=== PATIENT | female | born 1970 | race Caucasian/White ===

== ENCOUNTER 2021-12-16 09:59 | Outpatient (CLI) | payer OTHER, SELFPAY | END 2021-12-16 10:00 | disposition home or self-care (01) | LOC: OP CLINIC 10:01 | PROVIDERS: PCP Family Medicine; Visit Provider Internal Medicine | DX: Z12.11 Encounter for screening for malignant neoplasm of colon (principal) | CPT/HCPCS: 45378; J2250; J2405; J3010 ==

== ENCOUNTER 2022-02-03 07:35 | Outpatient (CLI) | payer OTHER, SELFPAY ==
--- NOTE | 2022-02-03 07:45 | CRLHL7_ITS ---
For Patients: As a result of the Cures Act, medical imaging exams and procedure reports are released immediately into your electronic medical record. You may view this report before your referring provider. If you have questions, please contact your health care provider. BILATERAL SCREENING MAMMOGRAM WITH COMPUTER-AIDED DETECTION TECHNIQUE: CC and MLO views were obtained. These mammographic images have been obtained using full-field digital technique. These mammographic images were interpreted with the benefit of computer-aided detection. COMPARISON FILM: No comparison available. FINDINGS: There are scattered areas of fibroglandular density. IMPRESSION: There is no radiographic evidence for malignancy. ASSESSMENT: BI-RADS Category 1: Negative RECOMMENDATION: Routine screening mammogram in 1 year. A lay language report of this examination will be provided to the patient. OH COOL M.D. Diagnostic Radiologist [email or web address] Transcribed: 3:[address]/Dictated by: Oh Cool MD @ 02/07/2022 1:41:00 PM (Electronically Signed) ----- ADDENDUM ----- COMPARISON: Outside examination 03/24/2020. There is no change to the report. Dictated by Oh Cool MD @ Feb 07 2022 1:41PM ----- ADDENDUM ----- COMPARISON: From 03/24/2020 is now available. There is no change compared to the prior study. No change to the report. Dictated by Oh Cool MD @ Feb 16 2022 10:17AM Signed by:?Oh Cool MD @02/07/2022 3:35:11 PM (Electronic Signature)
== END 2022-02-03 07:36 | disposition home or self-care (01) ==
LOC: MAMMO 07:36
PROVIDERS: PCP Family Medicine; Visit Provider Physician Assistant
DX: Z12.31 Encounter for screening mammogram for malignant neoplasm of breast (principal)
CPT/HCPCS: 77063; 77067

== ENCOUNTER 2023-02-20 16:08 | Outpatient (CLI) | payer OTHER, SELFPAY | END 2023-02-20 16:09 | disposition home or self-care (01) | LOC: NFLDREF 02-21 12:41 | PROVIDERS: PCP Family Medicine; Referring Provider Family Medicine; Visit Provider Physician Assistant | DX: N39.0 Urinary tract infection, site not specified (principal) | CPT/HCPCS: 87086; 87186 ==

== ENCOUNTER 2023-03-06 11:13 | Outpatient (CLI) | payer OTHER, SELFPAY ==
--- NOTE | 2023-03-06 11:30 | CRLHL7_ITS ---
For Patients: As a result of the Century Cures Act, medical imaging exams and procedure reports are released immediately into your electronic medical record. You may view this report before your referring provider. If you have questions, please contact your health care provider. BILATERAL SCREENING MAMMOGRAM WITH COMPUTER-AIDED DETECTION TECHNIQUE: CC and MLO views were obtained. These mammographic images have been obtained using full-field digital technique. These mammographic images were interpreted with the benefit of computer-aided detection. COMPARISON FILM: 02/03/22, 03/24/20. FINDINGS: There are scattered areas of fibroglandular density IMPRESSION: There is no radiographic evidence for malignancy. ASSESSMENT: BI-RADS Category 2: Benign RECOMMENDATION: Routine screening mammogram in 1 year. A lay language report of this examination will be provided to the patient. Oh Tucker M.D. Diagnostic Radiologist [email or web address] MAMIE/Dictated by: Oh Tucker MD @ 03/06/2023 12:17:00 PM (Electronically Signed)
== END 2023-03-06 11:14 | disposition home or self-care (01) ==
LOC: MAMMO 11:14
PROVIDERS: PCP Family Medicine; Visit Provider Physician Assistant
DX: Z12.31 Encounter for screening mammogram for malignant neoplasm of breast (principal)
CPT/HCPCS: 77067

== ENCOUNTER 2023-05-04 09:36 | Outpatient (CLI) | payer OTHER, SELFPAY | END 2023-05-04 09:37 | disposition home or self-care (01) | LOC: LKVREF 09:38 | PROVIDERS: PCP Family Medicine; Visit Provider Obstetrics & Gynecology | DX: N39.0 Urinary tract infection, site not specified (principal) | CPT/HCPCS: 87086; 87186 ==

== ENCOUNTER 2023-06-11 16:10 | Outpatient (CLI) | payer OTHER, SELFPAY | END 2023-06-11 16:11 | disposition home or self-care (01) | LOC: NFLDREF 06-13 06:58 | PROVIDERS: PCP Family Medicine; Referring Provider Family Medicine; Visit Provider Physician Assistant | DX: R30.0 Dysuria (principal) | CPT/HCPCS: 87086 ==

== ENCOUNTER 2024-02-06 09:00 | Outpatient (CLI) | payer OTHER, SELFPAY | END 2024-02-06 09:01 | disposition home or self-care (01) | PROVIDERS: Visit Provider Physician Assistant | DX: R39.9 Unspecified symptoms and signs involving the genitourinary system (principal); Z13.6 Encounter for screening for cardiovascular disorders; Z13.1 Encounter for screening for diabetes mellitus | CPT/HCPCS: 80061; 82947; 87086; 87186 ==

== ENCOUNTER 2024-04-14 14:53 | Outpatient (CLI) | payer OTHER, SELFPAY ==
--- NOTE | 2024-04-14 14:40 | CRLHL7_ITS ---
For Patients: As a result of the Cures Act, medical imaging exams and procedure reports are released immediately into your electronic medical record. You may view this report before your referring provider. If you have questions, please contact your health care provider. BILATERAL SCREENING MAMMOGRAM WITH COMPUTER-AIDED DETECTION AND TOMOSYNTHESIS TECHNIQUE: CC and MLO views were obtained. These mammographic images have been obtained using full-field digital technique. These mammographic images were interpreted with the benefit of computer-aided detection. Breast Tomosynthesis was used in this interpretation. COMPARISON FILM: 03/06/23, 02/03/22, 03/24/20. FINDINGS: There are scattered areas of fibroglandular density IMPRESSION: There is no radiographic evidence for malignancy. ASSESSMENT: BI-RADS Category 1: Negative RECOMMENDATION: Routine screening mammogram in 1 year. A lay language report of this examination will be provided to the patient. Oh Tucker M.D. Diagnostic Radiologist [email or web address] Transcribed: 4:29 p.mKacey masters/Dictated by: Oh Tucker MD @ 04/15/2024 9:00:00 AM (Electronically Signed)
== END 2024-04-14 14:54 | disposition home or self-care (01) ==
LOC: MAMMO 14:54
PROVIDERS: Visit Provider Physician Assistant
DX: Z12.31 Encounter for screening mammogram for malignant neoplasm of breast (principal)
CPT/HCPCS: 77063; 77067

== ENCOUNTER 2024-06-18 09:44 | Outpatient (CLI) | payer OTHER, SELFPAY | END 2024-06-18 09:45 | disposition home or self-care (01) | LOC: LKVREF 09:46 | PROVIDERS: Visit Provider Obstetrics & Gynecology | DX: M54.9 Dorsalgia, unspecified (principal); R35.0 Frequency of micturition; R39.15 Urgency of urination | CPT/HCPCS: 87086 ==